=== PATIENT | female | born 1930 | race Caucasian/White ===

== ENCOUNTER 2017-02-21 05:08 | Inpatient (IN) | payer OTHER ==
[~2017-02-21] VITALS: Ht 154.9 cm; Wt 45.7 kg
--- NOTE | ~2017-02-21 | 2DMMODE ---
[facility] [address] [facility] [place] [address] 2 D/M-MODE ECHOCARDIOGRAM Name: NEPTALI EASTMAN Room #: 216-P ADM IN M.R.#: [id number] Admission: 02/21/17 Attend Phys: Adelaida Colby Discharge: Date of : [birth year] Date of Service: 02/21/17 1603 Report #: [id number] THIS REPORT FOR: //name// APPROVED REPORT Study performed: 02/21/2017 13:45:20 EXAM: Comprehensive 2D, Doppler, and color-flow Echocardiogram Patient Location: Bedside Room #: 216 Blood Pressure: 143/73 mmHg HR: 68 bpm Other Information Study Quality: Adequate Indications CAD Chest Pain 2D Dimensions RVDd: 33.97 mm LVEF(%): 62.56 (>50%) IVSd: 13.10 (7-11mm) LVOT Diam: 18.96 (18-24mm) LVDd: 37.82 mm PWd: 8.77 (7-11mm) Ascending Ao: 28.64 (22-36mm) LVDs: 25.27 (25-40mm) Aortic Root: 31.87 mm IVC: 10.00 mm Brown's LVEF: 62.56 % Volumes Left Atrial Volume (Systole) Single Plane 4CH: 22.28 mL Single Plane 2CH: 68.72 mL LA ESV Index: 29.00 mL/m2 Aortic Valve AoV Peak Mayank.: 1.46 m/s AO Peak Gr.: 8.58 mmHg LVOT Max P.68 mmHg LVOT Max V: 0.96 m/s AI Vmax: 4.82 m/s AI Gilchrist: 2.61 m/s2 AI PHT: 534.37 ms [facility] [address] [place] [address] 2 D/M-MODE ECHOCARDIOGRAM Name: NEPTAIL EASTMAN [facility] Room #: 216-[facility] IN ..#: [id number] Admission: 02/21/17 Attend Phys: Adelaida Colby Discharge: Date of : [birth year] Date of Service: 02/21/17 1603 Report #: [id number] Mitral Valve E/A Ratio: 0.5 MV Decel. Time: 376.97 ms MV E Max Mayank.: 0.54 m/s MV A Mayank.: 1.04 m/s MV PHT: 109.32 ms Pulmonary Vein P Vein S: 61.9 m/s P Vein D: 36.4 m/s P Vein A Dur.: 28.0 m/s Tricuspid Valve TR Peak Mayank.: 2.98 m/s RAP Estimate: 5.00 mmHg TR Peak Gr.: 35.48 mmHg Left Ventricle The left ventricle is normal size. There is normal left ventricular wall thickness. There is no ventricular septal defect visualized. Left ventricular systolic function is borderline. No left ventricle thrombus noted on this study. LVEF is 50-60%. Grade I - abnormal relaxation pattern. Right Ventricle The right ventricle is normal size. There is normal right ventricular wall thickness. The right ventricular systolic function is normal. Atria The left atrium size is normal. Small PFO is noted. The right atrium size is normal. Aortic Valve The aortic valve is normal in structure. Mild to moderate aortic regurgitation. There is no aortic valvular vegetation. There is no aortic valvular stenosis. Mitral Valve The mitral valve is normal in structure. Trace to mild mitral regurgitation. There is no evidence of mitral valve vegetations. No evidence of mitral valve stenosis. There is no evidence of mitral valve prolapse. Tricuspid Valve The tricuspid valve is normal in structure. There is no tricuspid valve stenosis. Mild to moderate tricuspid regurgitation. There is no tricuspid valve vegetations. [address] [address] 2 D/M-MODE ECHOCARDIOGRAM Name: NEPTALI EASTMAN Room #: 216-P [facility] IN [facility]#: [id number] Admission: 02/21/17 Attend Phys: Adelaida Colby Discharge: Date of : [birth year] Date of Service: 02/21/17 1603 Report #: [id number] Pulmonic Valve Pulmonic valve is not well visualized due to low window of visualization. There is no pulmonic valvular stenosis. There is no pulmonic valve vegetations. Great Vessels The aortic root is normal in size. The ascending aorta is normal in size. IVC is normal in size and collapses >50% with inspiration. The pulmonary artery is normal. Pericardium There is no pericardial effusion. There is no pleural effusion. <Conclusion> The left ventricle is normal size. There is no ventricular septal defect visualized. LVEF is 50-60%. The aortic valve is normal in structure. Mild to moderate aortic regurgitation. The mitral valve is normal in structure. Trace to mild mitral regurgitation. The tricuspid valve is normal in structure. Mild to moderate tricuspid regurgitation. <ELECTRONICALLY SIGNED> By: Carlos Langford MD 02/21/17 1603 1603 1603 Carlos Langford MD /INF
--- NOTE | ~2017-02-21 | D ---
[facility] [place] [address] DISCHARGE SUMMARY Name: NEPTALI EASTMAN Room #: 216-P [facility] IN M.R.#: [id number] Admission: 02/22/17 Attend Phys: Adelaida Colby MD Discharge: 02/23/17 Date of : [birth year] Report #: [id number] THIS REPORT FOR: //name// CC: Adelaida [facility] DATE OF SERVICE: 02/23/2017 HISTORY OF PRESENT ILLNESS: The patient is an 86-year-old female with history of coronary artery disease, status post cardiac stents times 6 in the past, who was admitted to the hospital with chest pain. Please refer to admission H and P for details. In brief, the patient's initial evaluation was unremarkable, including negative troponins. Second set of troponin was borderline high. Circuit Board Assembler was consulted. HOSPITAL COURSE: The patient had cardiac echo, that showed normal ejection fraction, and was unremarkable. The patient has plbl-ru-zagszwal tricuspid regurgitation. Cardiac catheterization was performed on 02/22/2017. Cardiac echo showed patent LAD with aeqw-qs-npptghbv stenosis, patent sequential SVG. The patient has occluded RCA with collateral filling of the distal segments about 50%. Medical therapy was recommended. The patient's condition remained stable. Chest pain has completely resolved. Currently, the patient's condition is acceptable, including physical examination and laboratory values as documented in the patient's chart. DISCHARGE DIAGNOSES: 1. Chest pain, resolved. Details as above. As noted, the patient had cardiac catheterization on 02/22/2017, that showed no new coronary artery disease. 2. Coronary artery disease, status post coronary artery bypass grafting surgery, and stent placements. 3. Hypertension. 4. History of diverticulitis. 5. History of atrial fibrillation, status post ablation in 2010. 6. History of nephrolithiasis. 7. Macular degeneration. DISCHARGE MEDICATIONS: Please refer to the medication reconciliation list in EMR. FOLLOWUP PLAN: [facility] [address] [place] [address] DISCHARGE SUMMARY Name: NEPTALI EASTMAN [facility] Room #: 216-P [facility] IN ..#: [id number] Admission: 02/22/17 Attend Phys: Adelaida Colby MD Discharge: 02/23/17 Date of : [birth year] Report #: [id number] 1. Follow up with the primary care physician in 1-2 weeks. 2. Follow up with tack maker in 3 weeks. <ELECTRONICALLY SIGNED> By: Adelaida Colby MD 02/26/17 1231 1115 [id number] Adelaida Colby MD /nt
--- NOTE | ~2017-02-21 | EKG ---
[address] [place] [address] ELECTROCARDIOGRAM REPORT Name: NEPTALI EASTMAN Room #: 216-P [facility]#: [id number] Admission: 02/21/17 Attend Phys: Alvino Calles MD Discharge: Date of : [birth year] Report #: [id number] THIS REPORT FOR: //name// [facility] ED Test Date: 2017-02-21 Test Time: 05:15:30 Pat Name: NEPTALI EASTMAN Department: Room: 216 Gender: F [employer]ation [employer] Controls Instructor: LUIZA : 1930 Requested By: Jose Alberto Haq Order Number: [id number] MD: Mayank Lewis Measurements Intervals [place] Rate: 72 P: 23 W[place]: 160 QRS: -38 QRSD: 114 T: 68 QT: 417 QTc: 457 Interpretive Statements Atrial fibrillation Occasional premature ventricular complexes. Compared to ECG 01/05/2016 02:59:34 Atrial fibrillation is replaced sinus rhythm Electronically Signed On 02-21-2017 8:04:28 CDT by Mayank Lewis [email or web address] <ELECTRONICALLY SIGNED> By: Mayank Lewis MD, [facility] 02/21/17 0804 4 Mayank Lewis MD, [facility] /EPI
--- NOTE | ~2017-02-21 | CATHLAB ---
[facility] [place] [address] INVASIVE PROCEDURE REPORT Name: RAIZANEPTALI Room #: 216-P [facility] IN ..#: [id number] Admission: 02/22/17 Attend Phys: Adelaida Colby Discharge: Date of : [birth year] Date of Service: 02/22/17 0948 Report #: [id number] THIS REPORT FOR: //name// CC: Adelaida Jenkins DATE OF SERVICE: 02/22/2017 CARDIAC CATHETERIZATION INDICATIONS: Unstable angina. Full risks, benefits and alternatives of cardiac catheterization were explained to the patient. All questions were answered. Informed consent was obtained. The right groin area was prepped and draped in a sterile manner. Lidocaine was given subcutaneously. A 4-Kyrgyz sheath was inserted into the right femoral artery via modified Seldinger technique. CORONARY ANATOMY: The left main artery is a moderate to large size caliber vessel, with no flow-limiting lesions. The LAD is a moderate sized caliber vessel, travelling down the anterior wall and wrapping around the apex. There are previously placed stents in the proximal/mid segments of the LAD with pwys-xr-nxcushsp diffuse restenosis, 30% to 50%. Medical therapy is recommended. ____, the remaining segments of the LAD have no flow-limiting lesions. The left circumflex artery is ____ occluded at the proximal segment. The RCA is a dominant vessel with a total occlusion in the proximal segment. GRAFTS: There is a saphenous vein graft to the distal RCA with a 100% occlusion in the proximal segment. The [place] distal RCA is filled via collateral circulation from the left coronary artery. There is a patent sequential saphenous vein graft to the first diagonal artery, first obtuse marginal artery and second obtuse marginal artery. Within the anastomotic sites, there were no flow limiting lesions. Within the mid segment of the vein graft between the anastomosis of the first diagonal artery and first obtuse marginal artery, there is a zrza-or-wcnllswf lesion, 30% to 40%. Medical therapy is recommended. After the anastomosis, the first and second obtuse marginal arteries have antegrade flow with no flow limiting lesions. [facility] [address] [place] [address] INVASIVE PROCEDURE REPORT Name: NEPTALI EASTMAN ANISH Room #: 216-P [facility] IN .R.#: [id number] Admission: 02/22/17 Attend Phys: Adelaida Colby Discharge: Date of : [birth year] Date of Service: 02/22/17 0948 Report #: [id number] A left ventriculogram was performed revealing mild segmental LV dysfunction, ejection fraction of 50%. There is hypokinesis of the anterior lateral segment. The LVEDP is approximately 12 mmHg. There is no gradient across the outflow tract. IMPRESSION: 1. Patent LAD stents with scph-pe-huzgfalj diffuse restenosis. Recommend medical therapy. 2. Patent sequential vein graft to first diagonal artery, first obtuse marginal artery and second obtuse marginal artery. There is vrqv-ra-adiqsjgw stenosis within the vein graft. Medical therapy is recommended. 3. Occlusion of the [place] RCA and vein graft to the RCA. The distal RCA is filled via collateral circulation. Continue with medical therapy. 4. Mild segmental LV dysfunction. <ELECTRONICALLY SIGNED> By: Jacques Forbes MD 02/23/17 0840 0948 1329 Jacques Forbes MD /nt
[~2017-02-21 05:08] MED LIST: APAP500 PO; ASPIRIN325 PO; BACTRIM DS TAB1 EACH PO; BETAPACE80 MG PO; CEPHALEXIN PO; DARVOCET-N 1001 EAC1 PO; DARVOCET-N 1001 EACH PO; ECOTRIN325 MG PO; HEALTHY EYES C1 EACH PO; HYDROCHLOROTH12.5 MG PO; IMDUR 30 MG TAB30 M1 PO; IMDUR 60 MG TAB60 M1 PO; KEFLEX500 MG PO; KLOR-CON 1010 MEQ PO; LATANOPROST 0.2.5 ML OP; MACROBID 100 M100 M1 PO; MIRALAX255 GM PO; MUCINEX TA600 MG/TA2 PO; NITROGLYCERIN0.4 MG SUBLING; NITROSTAT0.4 MG PO; OMEPRAZOLE PO; PHENERGAN 25 MG25 M1 PO; POTASSIUM20 PO; PRILOSEC20 MG PO; QUINU10 PD PO; REFRESH TEARS15 ML OP; SIMVASTATIN40 MG PO; TOPROL XL100 MG PO; TOPROL XL25 MG PO; ZOFRAN ODT4 MG PO
[2017-02-21 05:09] VITALS: BP 143/74
[2017-02-21 05:30] LABS: ABSOLUTE NEUTROPHILS 4.2 thou/uL (1.4-8.2); BASOPHILS 0.8 % (0.0-2.0); EOSINOPHILS 1.7 % (0.0-3.0); HEMATOCRIT 35.4 % (37.0-47.0); HEMOGLOBIN 12.3 gm/dL (12.0-15.0); MCH 35.4 pg (26.0-34.0); MCHC 34.7 g/dL (28.0-37.0); MCV 102.1 fL (80.0-100.0); MONOCYTES 8.3 % (1.0-8.0); PLATELET COUNT 239 thou/uL (150-400); POLYS 57.2 % (36.0-66.0); RBC 3.47 mil/uL (4.20-5.00); RDW 13.9 % (10.5-14.5); WBC 7.3 thou/uL (4.0-11.0)
[2017-02-21 05:37] LABS: MANUAL DIFF NO
[2017-02-21 05:38] LABS: ANION GAP 10 mmol/L (7-16); BUN 14 mg/dL (7-18); CALCIUM 7.6 mg/dL (8.5-10.1); CHLORIDE 111 mmol/L (98-107); CO2 23 mmol/L (21-32); CREATININE 0.7 mg/dL (0.6-1.0); GLUCOSE 95 mg/dL (74-106); POTASSIUM 3.1 mmol/L (3.5-5.1); SODIUM 144 mmol/L (136-145)
[2017-02-21 05:45] LABS: ALBUMIN 3.4 g/dL (3.4-5.0); ALKALINE PHOSPHATASE 58 U/L (46-116); MAGNESIUM 1.9 mg/dL (1.8-2.4); SGOT 19 U/L (15-37); SGPT 14 U/L (30-65); TOTAL BILIRUBIN 0.7 mg/dL (<0.1-1.0); TOTAL PROTEIN 5.7 g/dL (6.4-8.2); TROPONIN-I < 0.04 ng/mL (<0.04-0.07)
[2017-02-21 06:55] VITALS: BP 135/61
[2017-02-21 07:20] VITALS: BP 177/94
[2017-02-21 11:20] VITALS: BP 143/73
[2017-02-21 16:00] VITALS: BP 115/72
[2017-02-21 19:26] VITALS: BP 116/69
[2017-02-22] VITALS (12 sets, daily range): BP systolic 106–150; BP diastolic 56–80
[2017-02-22 04:16] LABS: CALCIUM 9.4 mg/dL (8.5-10.1); CREATININE 0.9 mg/dL (0.6-1.0)
[2017-02-22 04:19] LABS: ABSOLUTE NEUTROPHILS 4.9 thou/uL (1.4-8.2); BASOPHILS 0.5 % (0.0-2.0); EOSINOPHILS 1.4 % (0.0-3.0); HEMATOCRIT 36.2 % (37.0-47.0); HEMOGLOBIN 12.5 gm/dL (12.0-15.0); LYMPHOCYTES 21.9 % (24.0-44.0); MCH 35.2 pg (26.0-34.0); MCHC 34.5 g/dL (28.0-37.0); MCV 102.1 fL (80.0-100.0); MONOCYTES 10.3 % (1.0-8.0); PLATELET COUNT 212 thou/uL (150-400); POLYS 65.9 % (36.0-66.0); RBC 3.55 mil/uL (4.20-5.00); RDW 14.1 % (10.5-14.5); WBC 7.4 thou/uL (4.0-11.0)
[2017-02-22 04:21] LABS: MANUAL DIFF NO
[2017-02-23 00:30] VITALS: BP 121/68
[2017-02-23 03:55] LABS: HEMOGLOBIN 12.1 gm/dL (12.0-15.0); MCH 35.1 pg (26.0-34.0); MCHC 34.5 g/dL (28.0-37.0); MCV 101.7 fL (80.0-100.0); PLATELET COUNT 202 thou/uL (150-400); RBC 3.44 mil/uL (4.20-5.00); RDW 13.8 % (10.5-14.5)
[2017-02-23 03:57] LABS: MANUAL DIFF YES
[2017-02-23 03:58] LABS: POTASSIUM 4.2 mmol/L (3.5-5.1)
[2017-02-23 04:44] VITALS: BP 113/61
[2017-02-23 07:15] VITALS: BP 110/59
[2017-02-23 07:31] LABS: ABSOLUTE NEUTROPHILS 3.4 thou/uL (1.4-8.2); ANISOCYTOSIS SLIGHT; TOTAL CELL COUNT 100
[2017-02-23 07:55] VITALS: BP 110/59
[2017-02-23 11:05] VITALS: BP 110/59
[2017-02-23 12:00] VITALS: BP 146/69
== END 2017-02-23 14:50 | disposition home or self-care (01) | DRG 287 ==
LOC: ER 05:08 → 2N 05:49 → EROBS 05:49 → 2N 07:23
PROVIDERS: Emergency Medicine; Internal Medicine Cardiovascular Disease; Internal Medicine Endocrinology, Diabetes & Metabolism
PROC: B2151ZZ Fluoroscopy of Left Heart using Low Osmolar Contrast (ICD-10-PCS; principal; 2017-02-22)
PROC: B2111ZZ Fluoroscopy of Multiple Coronary Arteries using Low Osmolar Contrast (ICD-10-PCS; principal; 2017-02-22)
PROC: B2121ZZ Fluoroscopy of Single Coronary Artery Bypass Graft using Low Osmolar Contrast (ICD-10-PCS; principal; 2017-02-22)
PROC: 4A023N7 Measurement of Cardiac Sampling and Pressure, Left Heart, Percutaneous Approach (ICD-10-PCS; principal; 2017-02-22)
DX: T82.855A Stenosis of coronary artery stent, initial encounter (principal); I25.10 Atherosclerotic heart disease of native coronary artery without angina pectoris; H40.9 Unspecified glaucoma; E87.6 Hypokalemia; H35.30 Unspecified macular degeneration; I48.91 Unspecified atrial fibrillation; I10 Essential (primary) hypertension; Z90.710 Acquired absence of both cervix and uterus; E78.5 Hyperlipidemia, unspecified; Z87.442 Personal history of urinary calculi; Z90.49 Acquired absence of other specified parts of digestive tract; Z88.6 Allergy status to analgesic agent; Z88.0 Allergy status to penicillin; Z88.1 Allergy status to other antibiotic agents; Z87.891 Personal history of nicotine dependence; Z79.82 Long term (current) use of aspirin; Z79.899 Other long term (current) drug therapy; Z82.49 Family history of ischemic heart disease and other diseases of the circulatory system
CPT/HCPCS: 10081

== ENCOUNTER 2017-03-11 05:30 | Emergency (ER) | payer OTHER ==
[~2017-03-11] VITALS: Ht 154.9 cm; Wt 44.5 kg
--- NOTE | ~2017-03-11 | EKG ---
[address] [place] [address] ELECTROCARDIOGRAM REPORT Name: RAIZANEPTALI ANISH [id number] Admission: 03/11/17 Attend Phys: Discharge: 03/11/17 Date of : [birth year] Report #: [id number] THIS REPORT FOR: //name// [facility] ED Test Date: 2017-03-11 Test Time: 05:37:04 Pat Name: NEPTALI EASTMAN Department: Room: Gender: F Palliative Care Nurse Practitioner: ADRIANA : 1930 Requested By: Cara Pratt Order Number: [id number] MD: Mayank Lewis Measurements Intervals [place] Rate: 63 P: 48 [place]: 164 QRS: -31 QRSD: 109 T: 87 QT: 424 QTc: 435 Interpretive Statements Sinus rhythm Left axis deviation Compared to ECG 02/21/2017 05:15:30 Atrial fibrillation no longer present Ventricular premature complex(es) no longer present Electronically Signed On 03-11-2017 11:54:08 CDT by Mayank Lewis [email or web address] <ELECTRONICALLY SIGNED> By: Mayank Lewis MD, [facility] 03/11/17 1154 Mayank Lewis MD, [facility] /EPI
[2017-03-11 06:12] LABS: ABSOLUTE NEUTROPHILS 6.3 thou/uL (1.4-8.2); BASOPHILS 0.3 % (0.0-2.0); HEMATOCRIT 33.2 % (37.0-47.0); HEMOGLOBIN 11.5 gm/dL (12.0-15.0); LYMPHOCYTES 12.9 % (24.0-44.0); MCH 35.8 pg (26.0-34.0); MCHC 34.7 g/dL (28.0-37.0); MCV 103.2 fL (80.0-100.0); MONOCYTES 6.2 % (1.0-8.0); PLATELET COUNT 215 thou/uL (150-400); POLYS 79.6 % (36.0-66.0); RBC 3.22 mil/uL (4.20-5.00); RDW 14.2 % (10.5-14.5); WBC 7.9 thou/uL (4.0-11.0)
[2017-03-11 06:14] LABS: MANUAL DIFF NO
[2017-03-11 06:21] LABS: ANION GAP 6 mmol/L (7-16); BUN 17 mg/dL (7-18); CALCIUM 9.3 mg/dL (8.5-10.1); CHLORIDE 106 mmol/L (98-107); CO2 28 mmol/L (21-32); CREATININE 0.9 mg/dL (0.6-1.0); GLUCOSE 125 mg/dL (74-106); POTASSIUM 3.9 mmol/L (3.5-5.1); SODIUM 140 mmol/L (136-145)
[2017-03-11 06:29] LABS: TROPONIN-I < 0.04 ng/mL (<0.04-0.07)
[2017-03-11] MEDS ORDERED: ZOFRAN ODT4 MG PO (09:14)
[2017-03-11] MEDS ORDERED: NORCO 5-325 TA1 EACH PO (09:14)
[2017-03-11 09:38] VITALS: BP 143/58
== END 2017-03-11 09:40 | disposition home or self-care (01) ==
LOC: ER 05:30
PROVIDERS: Emergency Medicine
DX: R07.89 Other chest pain (principal); I25.10 Atherosclerotic heart disease of native coronary artery without angina pectoris; H35.30 Unspecified macular degeneration; Z90.710 Acquired absence of both cervix and uterus; Z90.49 Acquired absence of other specified parts of digestive tract; Z98.84 Bariatric surgery status; Z90.89 Acquired absence of other organs; Z88.0 Allergy status to penicillin; Z88.1 Allergy status to other antibiotic agents; Z88.5 Allergy status to narcotic agent; Z87.891 Personal history of nicotine dependence

== ENCOUNTER 2017-09-29 12:25 | Inpatient (IN) | payer OTHER ==
[~2017-09-29] VITALS: Ht 154.9 cm; Wt 44.4 kg
--- NOTE | ~2017-09-29 | H ---
[facility] [place] [address] HISTORY AND PHYSICAL Name: NEPTALI EASTMAN Room #: 448-P ADM IN M.R.#: [id number] Admission: 09/29/17 Attend Phys: Adelaida Colby MD Discharge: Date of : [birth year] Report #: [id number] THIS REPORT FOR: //name// [facility]: [facility] DATE OF SERVICE: 09/29/2017 The patient is admitted to the hospital on September 29. CHIEF COMPLAINT: Abdominal pain. HISTORY OF PRESENT ILLNESS: The patient is an 87-year-old female with multiple medical problems, was started substernal/epigastric pain yesterday. The patient describes pain as sharp, stabbing, that comes and goes. Highest intensity pain was 10/10. In the Emergency Room, the patient had CT scan of the abdomen that was consistent with small-bowel obstruction. After symptomatic treatment, the patient feels better. The patient also had EKG that showed no acute findings. Troponin was borderline elevated. The patient has no shortness of breath, no chest pain, no heart palpitations, dizziness, blurry vision, or other symptoms. PAST MEDICAL HISTORY: 1. Coronary artery disease, status post CABG in 1994. Status post angioplasty and stent placements. 2. Nephrolithiasis. 3. Macular degeneration. 4. Atrial fibrillation, status post ablation in 2010. 5. Hypertension. 6. Dyslipidemia. 7. Hemorrhoids. 8. Status post appendectomy. 9. Status post cholecystectomy. HOME MEDICATIONS: Reviewed and documented in the patient's chart. FAMILY HISTORY: Reviewed and not pertinent to the patient's current clinical condition. SOCIAL HISTORY: The patient lives by herself, close to her family. She does not smoke cigarettes and does not drink alcohol. REVIEW OF SYSTEMS: As above in HPI section, all others negative. [facility] [address] [place] [address] HISTORY AND PHYSICAL Name: NEPTALI EASTMAN Room #: 448-P ADM IN [facility].#: [id number] Admission: 09/29/17 Attend Phys: Adelaida Colby MD Discharge: Date of : [birth year] Report #: [id number] PHYSICAL EXAMINATION: GENERAL: The patient is an elderly female, who is in no apparent distress. VITAL SIGNS: Blood pressure is 138/69, heart rate is 68 and regular, respiration is 20, temperature is 97.7. HEENT: Pupils are equal. Eye movements are normal. Sclerae are anicteric. Oral mucosa is somewhat dry. NECK: Supple. The patient has no thyromegaly. RESPIRATORY: Chest moves symmetrically with breathing. LUNGS: Clear to auscultation bilaterally. CARDIOVASCULAR: The patient has regular rhythm and rate. She has no murmurs, gallops or rubs. GASTROINTESTINAL: Abdomen is slightly distended and soft. Abdomen is tender on deep palpation. The patient has no rebound tenderness. Hepatomegaly or splenomegaly cannot be palpated. MUSCULOSKELETAL: There is no edema, cyanosis or clubbing. NEUROLOGIC: Grossly intact. The patient is alert and oriented x 3. SKIN: The patient has no skin lesions. Skin is dry and warm. LABORATORY DATA: Basic metabolic profile is essentially normal. Lactic acid is also normal. Liver function tests are normal. Troponin is borderline high at 0.08. On CBC, white count is 13.7. Hemoglobin and hematocrit are in the normal range. White count differential is also normal. ASSESSMENT AND PLAN: 1. Small-bowel obstruction. Symptomatic treatment will be continued. General surgeon is consulted. The patient may need NG tube placement with suctioning. The patient will be n.p.o. until oral intake is established. 2. Longstanding history of coronary artery disease, status post CABG in 1994, followed by PTCA and stent placements. Troponin is borderline elevated. We will monitor troponin levels. EKG shows no acute findings, and the patient has no chest pain. Synthetic Department Supervisor is consulted for further evaluation. 3. Hypertension. Acceptable control. We will use hydralazine until the patient starts taking medications by mouth. 4. Deep venous thrombosis prophylaxis. We will use SCDs. By: 1547 1644 Adelaida Colby MD /nt
--- NOTE | ~2017-09-29 | HC ---
[facility] [place] [address] CONSULTATION Name: NEPTALI EASTMAN Room #: 448-P ADM IN M.R.#: [id number] Admission: 09/29/17 Attend Phys: Adelaida Colby MD Discharge: Date of : [birth year] Report #: [id number] THIS REPORT FOR: //name// CC: Jacques Jenkins MD DATE OF SERVICE: 09/29/2017 REASON FOR CONSULTATION: Bowel obstruction. HISTORY OF PRESENT ILLNESS: This is an 87-year-old female patient who developed bloating yesterday and began having pain this morning around 9:00. She has had difficulty with nausea and had not been vomiting. She was seen in the [facility] where she underwent a CT of the abdomen and pelvis showing changes consistent with a small-bowel obstruction with a transition point in the right pelvis. A small amount of reactive free fluid was also seen in the pelvis. The patient had leukocytosis as well. Attempts were made to place a nasogastric tube unsuccessfully. The patient had emesis with this. I have been asked to see the patient for further evaluation and treatment. She denies fever or chills. She has not had a previous bowel obstruction. PAST MEDICAL AND SURGICAL HISTORY: Significant for coronary artery disease, diverticulitis, hemorrhoids, cardiac disease status post CABG and cardiac stents, glaucoma, macular degeneration, open appendectomy, open cholecystectomy, total abdominal hysterectomy with bilateral salpingo-oophorectomy. MEDICATIONS: Include Zocor, MiraLax, Accupril, latanoprost eye drops, potassium chloride, hydrochlorothiazide, Imdur, Prilosec, Ecotrin, Tylenol, Toprol-XL, multivitamins, Mucinex, and Nitrostat p.r.n. chest pain. ALLERGIES: PENICILLIN causes a rash. MORPHINE causes nausea and vomiting. FAMILY HISTORY: Reviewed and noncontributory to this hospitalization. The patient has a son with cardiomyopathy. SOCIAL HISTORY: The patient denies use of tobacco, alcohol or illicit drugs. She is accompanied by her son and zagdzfan-lh-xhr. REVIEW OF SYSTEMS: As per history of present illness. In addition: GENERAL: The patient denies fever or chills. Denies unintentional weight loss. HEENT: Denies changes in taste, vision, hearing, or smell. RESPIRATORY: Denies shortness of breath, COPD or asthma. CARDIOVASCULAR: Denies chest pain or palpitations. GASTROINTESTINAL: As per history of present illness. She denies bright red [facility] [address] [place] [address] CONSULTATION Name: NEPTALI EASTMAN ANISH Room #: 448-P [facility] IN M..#: [id number] Admission: 09/29/17 Attend Phys: Adelaida Colby MD Discharge: Date of : [birth year] Report #: [id number] blood per rectum. Her most recent colonoscopy was in 2008. GENITOURINARY: Denies dysuria, urgency, increased urinary frequency or hematuria. MUSCULOSKELETAL: Denies myalgia, arthralgia or arthritis. NEUROLOGIC: Denies headaches, numbness or tingling. PSYCHIATRIC: Denies depression, anxiety or suicidal ideations. SKIN AND INTEGUMENTARY: Denies new skin lesions, rashes, or moles. ENDOCRINE: Denies polydipsia, polyuria, heat or cold intolerance. HEMATOLOGIC: Denies easy bleeding, bruising or anemia. All other review of systems is negative. PHYSICAL EXAMINATION: VITAL SIGNS: Temperature 97.7, blood pressure 151/46, pulse 59, respirations 18, height 5 feet 1 inches, and weight 100 pounds. GENERAL: This is an 87-year-old female patient in no acute distress. HEENT: Atraumatic, normocephalic with moist mucosal membranes. Oropharynx clear. She has no scleral icterus. NECK: Supple, no appreciable lymphadenopathy. Trachea is midline. CHEST: Clear bilaterally. No crackles or wheezes. CARDIOVASCULAR: Regular rate and rhythm. ABDOMEN: Soft and distended in the lower abdomen. Incisional scars are seen on the right for her appendectomy in the lower midline and left paramedian as well as a right subcostal scar. There are no appreciable hernias, no palpable masses, no rebound or guarding with mild tenderness to palpation in the lower abdomen and upper epigastrium. GENITOURINARY: Normal external female genitalia. EXTREMITIES: No clubbing, cyanosis or edema. NEUROLOGIC: Cranial nerves 2-12 grossly intact. PSYCHIATRIC: Normal mood and affect. SKIN AND INTEGUMENTARY: No acute inflammatory changes, rashes or lesions are present. LABORATORY DATA: CBC shows a white blood cell count of 13.7, hemoglobin 12.9, hematocrit 37.6 and platelets 256 with 77.8 segmented neutrophils. Electrolytes show sodium 136, potassium 4.1, chloride 101, CO2 of 29, BUN 17, creatinine 0.9 and glucose 115 with normal liver function tests and a normal lipase. Her lactic acid was normal at 1.2. Urinalysis was entirely negative. RADIOLOGIC STUDIES: CT of the abdomen and pelvis showed a small amount of reactive free fluid in the dependent pelvis with fluid filled loops of small bowel within the abdomen and pelvis. The distal small bowel was decompressed. A focal transition point was seen in the right pelvis with fecalization of the small bowel just proximal to the obstruction site. There is no free air or other acute finding seen. IMPRESSION AND PLAN: This is an 87-year-old female patient with a mechanical [facility] [address] [place] [address] CONSULTATION Name: NEPTALI EASTMAN ANISH Room #: 448-P ADM IN M.R.#: [id number] Admission: 09/29/17 Attend Phys: Adelaida Colby MD Discharge: Date of : [birth year] Report #: [id number] small-bowel obstruction. Her abdomen is distended and she has CT findings for a transition zone in the right pelvis with fecalization of the small bowel. We discussed the pathophysiology and natural history of bowel obstructions as well as treatment alternatives and surgical options. The patient would benefit from decompression of her proximal small bowel, bowel rest, and IV fluid resuscitation. She has high hopes that with adequate decompression, her obstruction will resolve. The nurse attempted to place a nasogastric tube 3 times unsuccessfully and the patient wishes not to undergo this again today. My recommendation is that a nasogastric tube be placed with lidocaine jelly and I will plan to have this placed tomorrow. The patient is aware that she may self decompressed with vomiting. After placement of the tube tomorrow, a KUB will be obtained. I will follow along with serial abdominal exams as well as labs and x-rays as necessary. The patient expressed understanding of the plan. I sincerely appreciate the opportunity to participate in the care of this patient and will leave further recommendations and orders in the electronic medical record as appropriate. <ELECTRONICALLY SIGNED> By: Horacio Jackson MD, FACS 09/30/17 0737 1653 [id number] Horacio Jackson MD, FACS /nt
--- NOTE | ~2017-09-29 | EKG ---
[address] [address] ELECTROCARDIOGRAM REPORT Name: NEPTALI EASTMAN Room #: 448-P ADM IN M.R.#: [id number] Admission: 09/29/17 Attend Phys: Adelaida Colby MD Discharge: Date of : [birth year] Report #: [id number] THIS REPORT FOR: //name// [facility] ED Test Date: 2017-09-29 Test Time: 12:30:04 Pat Name: NEPTALI EASTMAN Department: Room: [facility] Gender: F Refrigerating Engineer Head: : 1930 Requested By: Cara Pratt Order Number: [id number] MD: Evan Albright Measurements Intervals [place] Rate: 72 P: 20 [place]: 166 QRS: -40 QRSD: 99 T: 96 QT: 413 QTc: 453 Interpretive Statements Sinus rhythm Left axis deviation Borderline repolarization abnormality Compared to ECG 03/11/2017 05:37:04 No significant changes Electronically Signed On 09-29-2017 16:06:11 RAP ARTIST by Evan Albright [email or web address] <ELECTRONICALLY SIGNED> By: Evan Albright MD 09/29/17 1606 1230 1230 Evan Albright MD /GERALDO
[~2017-09-29 12:25] MED LIST changes: +NORCO 5-325 TA1 EACH PO
[2017-09-29 12:50] LABS: ABSOLUTE NEUTROPHILS 10.6 thou/uL (1.4-8.2); BASOPHILS 0.4 % (0.0-2.0); EOSINOPHILS 0.7 % (0.0-3.0); HEMATOCRIT 37.6 % (37.0-47.0); HEMOGLOBIN 12.9 gm/dL (12.0-15.0); LYMPHOCYTES 13.4 % (24.0-44.0); MANUAL DIFF NO; MCH 35.3 pg (26.0-34.0); MCHC 34.2 g/dL (28.0-37.0); MCV 103.4 fL (80.0-100.0); MONOCYTES 7.7 % (1.0-8.0); PLATELET COUNT 256 thou/uL (150-400); POLYS 77.8 % (36.0-66.0); RBC 3.64 mil/uL (4.20-5.00); RDW 14.4 % (10.5-14.5); WBC 13.7 thou/uL (4.0-11.0)
[2017-09-29 12:59] LABS: CALCIUM 9.9 mg/dL (8.5-10.1); CREATININE 0.9 mg/dL (0.6-1.0); POTASSIUM 4.1 mmol/L (3.5-5.1)
[2017-09-29 13:04] LABS: ALBUMIN 4.2 g/dL (3.4-5.0); DIRECT BILIRUBIN 0.2 mg/dL (<0.1-0.3); TOTAL BILIRUBIN 0.8 mg/dL (<0.1-1.0); TOTAL PROTEIN 7.1 g/dL (6.4-8.2); TROPONIN-I 0.08 ng/mL (<0.06)
[2017-09-29 13:45] LABS: URINE BILIRUBIN NEGATIVE (Negative); URINE BLOOD NEGATIVE (Negative); URINE COLOR YELLOW; URINE GLUCOSE-RANDOM* NEGATIVE (Negative); URINE KETONES NEGATIVE (Negative); URINE NITRITE NEGATIVE (Negative); URINE PROTEIN (DIPSTICK) NEGATIVE (Negative); URINE UROBILINOGEN 0.2 E.U./dl (0.2-1.0)
[2017-09-29 14:03] VITALS: BP 125/58
[2017-09-29 15:30] VITALS: BP 137/67
[2017-09-29 16:00] VITALS: BP 151/46
[2017-09-29 20:07] VITALS: BP 135/54
[2017-09-30 04:30] VITALS: BP 126/51
[2017-09-30 06:15] LABS: HEMATOCRIT 35.9 % (37.0-47.0); HEMOGLOBIN 12.2 gm/dL (12.0-15.0); MCH 35.1 pg (26.0-34.0); MCHC 33.9 g/dL (28.0-37.0); MCV 103.3 fL (80.0-100.0); PLATELET COUNT 227 thou/uL (150-400); RBC 3.47 mil/uL (4.20-5.00); WBC 21.6 thou/uL (4.0-11.0)
[2017-09-30 06:18] LABS: MANUAL DIFF YES
[2017-09-30 06:34] LABS: CALCIUM 9.5 mg/dL (8.5-10.1); CREATININE 0.9 mg/dL (0.6-1.0); POTASSIUM 3.9 mmol/L (3.5-5.1)
[2017-09-30 08:00] VITALS: BP 122/70
[2017-09-30 10:11] LABS: ABSOLUTE NEUTROPHILS 19.2 thou/uL (1.4-8.2); MACROCYTES 1+; TOTAL CELL COUNT 100
[2017-09-30 17:08] VITALS: BP 124/53
[2017-09-30 19:14] VITALS: BP 119/51
[2017-10-01 04:15] LABS: ABSOLUTE NEUTROPHILS 8.1 thou/uL (1.4-8.2); BASOPHILS 0.3 % (0.0-2.0); EOSINOPHILS 0.5 % (0.0-3.0); HEMATOCRIT 31.9 % (37.0-47.0); HEMOGLOBIN 11.1 gm/dL (12.0-15.0); MCH 35.8 pg (26.0-34.0); MCHC 34.9 g/dL (28.0-37.0); MCV 102.5 fL (80.0-100.0); MONOCYTES 11.9 % (1.0-8.0); PLATELET COUNT 199 thou/uL (150-400); POLYS 76.3 % (36.0-66.0); RBC 3.11 mil/uL (4.20-5.00); RDW 14.3 % (10.5-14.5); WBC 10.6 thou/uL (4.0-11.0)
[2017-10-01 04:20] LABS: MANUAL DIFF NO
[2017-10-01 04:22] LABS: CALCIUM 8.3 mg/dL (8.5-10.1); CREATININE 0.9 mg/dL (0.6-1.0); POTASSIUM 3.2 mmol/L (3.5-5.1)
[2017-10-01 04:31] VITALS: BP 113/47
[2017-10-01 08:00] VITALS: BP 129/50
[2017-10-01 16:19] VITALS: BP 131/70
[2017-10-01 19:30] VITALS: BP 136/68
[2017-10-02 03:58] LABS: CALCIUM 8.5 mg/dL (8.5-10.1); CREATININE 0.7 mg/dL (0.6-1.0); POTASSIUM 3.2 mmol/L (3.5-5.1)
[2017-10-02 04:02] VITALS: BP 109/56
[2017-10-02 04:22] LABS: ABSOLUTE NEUTROPHILS 7.4 thou/uL (1.4-8.2); BASOPHILS 0.5 % (0.0-2.0); EOSINOPHILS 1.4 % (0.0-3.0); HEMATOCRIT 30.4 % (37.0-47.0); HEMOGLOBIN 10.7 gm/dL (12.0-15.0); LYMPHOCYTES 11.7 % (24.0-44.0); MCH 36.6 pg (26.0-34.0); MCHC 35.4 g/dL (28.0-37.0); MCV 103.5 fL (80.0-100.0); PLATELET COUNT 202 thou/uL (150-400); POLYS 75.4 % (36.0-66.0); RBC 2.93 mil/uL (4.20-5.00); RDW 14.1 % (10.5-14.5); WBC 9.8 thou/uL (4.0-11.0)
[2017-10-02 04:27] LABS: MANUAL DIFF NO
[2017-10-02 04:32] LABS: TSH 1.112 uIU/mL (0.358-3.740)
[2017-10-02 07:24] VITALS: BP 137/67
[2017-10-02 16:17] VITALS: BP 149/80
[2017-10-02 19:38] VITALS: BP 150/73
[2017-10-03 03:52] VITALS: BP 134/70
[2017-10-03 06:25] LABS: ABSOLUTE NEUTROPHILS 4.7 thou/uL (1.4-8.2); BASOPHILS 0.5 % (0.0-2.0); EOSINOPHILS 1.8 % (0.0-3.0); HEMATOCRIT 29.5 % (37.0-47.0); HEMOGLOBIN 10.3 gm/dL (12.0-15.0); LYMPHOCYTES 16.1 % (24.0-44.0); MONOCYTES 11.1 % (1.0-8.0); PLATELET COUNT 191 thou/uL (150-400); POLYS 70.5 % (36.0-66.0); RBC 2.86 mil/uL (4.20-5.00); RDW 14.1 % (10.5-14.5); WBC 6.6 thou/uL (4.0-11.0)
[2017-10-03 06:26] LABS: MANUAL DIFF NO
[2017-10-03 06:38] LABS: CALCIUM 8.9 mg/dL (8.5-10.1); CREATININE 0.6 mg/dL (0.6-1.0); POTASSIUM 3.1 mmol/L (3.5-5.1)
[2017-10-03 08:31] VITALS: BP 136/60
[2017-10-03 11:15] VITALS: BP 150/61
[2017-10-03 16:38] VITALS: BP 149/70
[2017-10-03 20:42] VITALS: BP 161/78
[2017-10-04 04:18] VITALS: BP 125/62
[2017-10-04 06:45] LABS: BASOPHILS 0.2 % (0.0-2.0); EOSINOPHILS 2.6 % (0.0-3.0); HEMATOCRIT 30.5 % (37.0-47.0); HEMOGLOBIN 10.7 gm/dL (12.0-15.0); LYMPHOCYTES 11.1 % (24.0-44.0); MANUAL DIFF NO; MCH 35.9 pg (26.0-34.0); MCHC 35.1 g/dL (28.0-37.0); MONOCYTES 10.6 % (1.0-8.0); PLATELET COUNT 237 thou/uL (150-400); POLYS 75.5 % (36.0-66.0); RBC 2.98 mil/uL (4.20-5.00); RDW 13.8 % (10.5-14.5); WBC 6.7 thou/uL (4.0-11.0)
[2017-10-04 06:58] LABS: CALCIUM 8.9 mg/dL (8.5-10.1); CREATININE 0.7 mg/dL (0.6-1.0); POTASSIUM 3.5 mmol/L (3.5-5.1)
[2017-10-04 07:07] LABS: CHOLESTEROL 122 mg/dL (<200); HDL CHOLESTEROL 36 mg/dL (>40); LDL CHOLESTEROL 66 mg/dL (<100); TC:HDL 3.4 Ratio (Not establshd); TRIGLYCERIDE 101 mg/dL (<150); VLDL 20 mg/dL (<40)
[2017-10-04 08:46] VITALS: BP 165/77
[2017-10-04 16:45] VITALS: BP 145/67
[2017-10-04 22:32] VITALS: BP 137/65
[2017-10-05 05:14] VITALS: BP 141/67
[2017-10-05 07:37] VITALS: BP 151/74
[2017-10-05 09:50] VITALS: BP 151/74
[2017-10-05 09:57] VITALS: BP 151/74
[2017-10-05 11:04] VITALS: BP 151/74
[2017-10-05 11:06] VITALS: BP 151/74
== END 2017-10-05 12:55 | disposition home health service (06) | DRG 389 ==
LOC: ER 12:25 → 4S 14:03 → EROBS 14:03 → 4S 15:26
PROVIDERS: Emergency Medicine; Family Medicine; Internal Medicine Endocrinology, Diabetes & Metabolism; Internal Medicine Geriatric Medicine; Registered Nurse
PROC: 0D9670Z Drainage of Stomach with Drainage Device, Via Natural or Artificial Opening (ICD-10-PCS; principal; 2017-09-30)
DX: K56.609 Unspecified intestinal obstruction, unspecified as to partial versus complete obstruction (principal); E46 Unspecified protein-calorie malnutrition; Z68.1 Body mass index [BMI] 19.9 or less, adult; I25.10 Atherosclerotic heart disease of native coronary artery without angina pectoris; H35.30 Unspecified macular degeneration; I48.91 Unspecified atrial fibrillation; I10 Essential (primary) hypertension; E78.00 Pure hypercholesterolemia, unspecified; E87.6 Hypokalemia; D53.9 Nutritional anemia, unspecified; D72.829 Elevated white blood cell count, unspecified; D51.9 Vitamin B12 deficiency anemia, unspecified; H40.9 Unspecified glaucoma; Z79.899 Other long term (current) drug therapy; Z79.82 Long term (current) use of aspirin; Z95.1 Presence of aortocoronary bypass graft; Z87.442 Personal history of urinary calculi; Z95.5 Presence of coronary angioplasty implant and graft; Z90.89 Acquired absence of other organs; Z90.49 Acquired absence of other specified parts of digestive tract; Z88.8 Allergy status to other drugs, medicaments and biological substances; Z88.0 Allergy status to penicillin; Z90.710 Acquired absence of both cervix and uterus
CPT/HCPCS: 10195

== ENCOUNTER 2017-10-14 04:22 | Emergency (ER) | payer OTHER ==
[~2017-10-14] VITALS: Ht 154.9 cm; Wt 45.4 kg
[2017-10-14 05:00] LABS: URINE BILIRUBIN NEGATIVE (Negative); URINE BLOOD TRACE (Negative); URINE CLARITY CLEAR; URINE COLOR YELLOW; URINE GLUCOSE-RANDOM* NEGATIVE (Negative); URINE KETONES NEGATIVE (Negative); URINE LEUKOCYTES-REFLEX NEGATIVE (Negative); URINE NITRITE-REFLEX NEGATIVE (Negative); URINE PROTEIN (DIPSTICK) NEGATIVE (Negative); URINE SPECIFIC GRAVITY <= 1.005 (1.005-1.035); URINE UROBILINOGEN 0.2 E.U./dl (0.2-1.0)
[2017-10-14 05:08] LABS: ABSOLUTE NEUTROPHILS 7.4 thou/uL (1.4-8.2); EOSINOPHILS 0.8 % (0.0-3.0); HEMATOCRIT 31.9 % (37.0-47.0); HEMOGLOBIN 11.1 gm/dL (12.0-15.0); LYMPHOCYTES 16.7 % (24.0-44.0); MCH 35.8 pg (26.0-34.0); MCHC 34.8 g/dL (28.0-37.0); PLATELET COUNT 366 thou/uL (150-400); POLYS 74.5 % (36.0-66.0); RDW 14.2 % (10.5-14.5); WBC 9.9 thou/uL (4.0-11.0)
[2017-10-14 05:14] LABS: CALCIUM 9.7 mg/dL (8.5-10.1); CREATININE 0.9 mg/dL (0.6-1.0); POTASSIUM 3.9 mmol/L (3.5-5.1)
[2017-10-14 05:19] LABS: ALBUMIN 3.8 g/dL (3.4-5.0); TOTAL BILIRUBIN 0.8 mg/dL (<0.1-1.0); TOTAL PROTEIN 6.6 g/dL (6.4-8.2)
[2017-10-14] MEDS ORDERED: ULTRAM 50MG TAB50 MG PO (07:21)
[2017-10-14] MEDS ORDERED: PYRIDIUM200 MG PO (07:21)
[2017-10-14] MEDS ORDERED: ZPAK PO (07:22)
[2017-10-14 07:37] VITALS: BP 168/79
== END 2017-10-14 07:38 | disposition home or self-care (01) ==
LOC: ER 04:22
PROVIDERS: Emergency Medicine
DX: R10.11 Right upper quadrant pain (principal); J18.9 Pneumonia, unspecified organism; I25.10 Atherosclerotic heart disease of native coronary artery without angina pectoris; I48.91 Unspecified atrial fibrillation; Z90.710 Acquired absence of both cervix and uterus; Z87.442 Personal history of urinary calculi; Z90.49 Acquired absence of other specified parts of digestive tract; Z88.5 Allergy status to narcotic agent; Z88.0 Allergy status to penicillin

== ENCOUNTER → 2017-10-29 | Outpatient (CLI) | payer OTHER ==
[~2017-10-29] MED LIST changes: +ATIVAN0.5 MG PO; +PYRIDIUM200 MG PO; +ULTRAM 50MG TAB50 MG PO; +ZPAK PO
== END ==
LOC: RAD 11:48
DX: J18.1 Lobar pneumonia, unspecified organism (principal)

== ENCOUNTER → 2018-01-17 | Outpatient (CLI) | payer OTHER ==
--- NOTE | ~2018-01-17 | 2DMMODE ---
[facility] [address] [place] [address] 2 D/M-MODE ECHOCARDIOGRAM Name: RAIZANEPTALI ANISH Room #: REG [facility]#: [id number] Admission: 01/17/18 Attend Phys: Jacques Forbes MD Discharge: Date of : [birth year] Date of Service: 01/17/18 1019 Report #: [id number] THIS REPORT FOR: //name// APPROVED REPORT Study performed: 01/17/2018 08:50:35 EXAM: Comprehensive 2D, Doppler, and color-flow Echocardiogram Patient Location: Echo lab Status: routine BSA: 1.38 HR: 60 bpm BP: 156/79 mmHg Other Information Study Quality: Adequate Indications CAD Hypertension/HDD 2D Dimensions RVDd: 44.50 mm LVEF(%): 54.61 (>50%) IVSd: 11.09 (7-11mm) LVOT Diam: 17.92 (18-24mm) LVDd: 39.72 mm PWd: 10.90 (7-11mm) LVDs: 28.64 (25-40mm) Aortic Root: 31.25 mm IVC: 12.00 mm Brown's LVEF: 54.61 % Volumes Left Atrial Volume (Systole) Single Plane 4CH: 45.86 mL Single Plane 2CH: 61.12 mL LA ESV Index: 40.00 mL/m2 Aortic Valve AoV Peak Mayank.: 1.71 m/s AO Peak Gr.: 11.68 mmHg LVOT Max P.83 mmHg LVOT Max V: 1.10 m/s JERMAINE Vmax: 1.62 cm2 AI Vmax: 3.98 m/s AI [facility]: 1.71 m/s2 AI PHT: 673.09 ms [facility] [email or web address] [address] [place] [address] 2 D/M-MODE ECHOCARDIOGRAM Name: NEPTALI EASTMAN Room #: REG [facility]#: [id number] Admission: 01/17/18 Attend Phys: Jacques Forbes MD Discharge: Date of : [birth year] Date of Service: 01/17/18 1019 Report #: [id number] Mitral Valve E/A Ratio: 0.6 MV Decel. Time: 284.44 ms MV E Max Mayank.: 0.78 m/s MV A Mayank.: 1.26 m/s MV PHT: 82.49 ms IVRT: 131.49 ms Pulmonary Valve PV Peak Gr.: 1.36 mmHg Pulmonary Vein P Vein S: 0.88 m/s P Vein A: 0.18 m/s P Vein D: 0.42 m/s P Vein A Dur.: 90.0 msec P Vein S/D Ratio: 2.10 Tricuspid Valve TR Peak Mayank.: 2.67 m/s RAP Estimate: 5.00 mmHg TR Peak Gr.: 28.46 mmHg PA Pressure: 34.00 mmHg Left Ventricle The left ventricle is normal size. There is normal left ventricular wall thickness. Left ventricular systolic function is borderline. LVEF is 50%. Mild diastolic dysfunction is present (impaired relaxation pattern). Right Ventricle Right ventricle is mildly dilated. The right ventricular systolic function is normal. Atria Left atrium is dilated. Right atrium is dilated. Aortic Valve Aortic valve is thickened but has adequate excursion. Mild aortic regurgitation. There is no aortic valvular stenosis. Mitral Valve Mild mitral annular calcification. Mild to moderate mitral regurgitation. No evidence of mitral valve stenosis. Tricuspid Valve The tricuspid valve is normal in structure. Mild to moderate tricuspid regurgitation. PAP is estimated at 34 mmHg. [facility] [address] [place] [address] 2 D/M-MODE ECHOCARDIOGRAM Name: NEPTALI EASTMAN ANISH Room #: REG [facility]#: [id number] Admission: 01/17/18 Attend Phys: Jacques Forbes MD Discharge: Date of : [birth year] Date of Service: 01/17/18 1019 Report #: [id number] Pulmonic Valve Pulmonic valve is not well visualized due to low parasternal window. Great Vessels The aortic root is normal in size. IVC is normal in size and collapses >50% with inspiration. Pericardium There is no pericardial effusion. <Conclusion> The left ventricle is normal size. There is normal left ventricular wall thickness. Left ventricular systolic function is borderline. LVEF is 50%. Mild diastolic dysfunction is present (impaired relaxation pattern). Right ventricle is mildly dilated. Left atrium is dilated. Right atrium is dilated. Mild aortic regurgitation. Mild to moderate mitral regurgitation. Mild to moderate tricuspid regurgitation. PAP is estimated at 34 mmHg. <ELECTRONICALLY SIGNED> By: Jacques Forbes MD 01/17/18 1019 1019 1019 Jacques Forbes MD /INF
== END ==
LOC: CV 08:38
DX: I08.3 Combined rheumatic disorders of mitral, aortic and tricuspid valves (principal); I25.10 Atherosclerotic heart disease of native coronary artery without angina pectoris; I10 Essential (primary) hypertension

== ENCOUNTER 2018-04-07 03:15 | Inpatient (IN) | payer OTHER ==
[2018-04-07] VITALS (7 sets, daily range): BP systolic 133–159; BP diastolic 53–76
[~2018-04-07] VITALS: Ht 154.9 cm; Wt 43.2 kg
--- NOTE | ~2018-04-07 | HC ---
[facility] [place] [address] CONSULTATION Name: NEPTALI EASTMAN Room #: 208-P ADM IN M.R.#: [id number] Admission: 04/07/18 Attend Phys: Jaquan Mckeon MD Discharge: Date of : [birth year] Report #: [id number] THIS REPORT FOR: //name// CC: Jaquan Jenkins REASON FOR CONSULTATION: Unstable angina. HISTORY OF PRESENT ILLNESS: The patient is an 87-year-old female with a history of coronary artery disease who follows with Dr. Forbes. Last night, she woke up and had a few palpitations that lasted about a minute and this resolved, but then she started noticing chest heaviness that radiated to her left arm. It lasted approximately 30 minutes. She called an ambulance who came and gave her some nitroglycerin and this resulted in alleviation of her pain. She is still having some mild chest discomfort off and on since she has been here, but nothing that lasted more than a minute or so. She denies any shortness of breath. She denies fevers or chills. She denies PND, orthopnea, presyncope or syncope. PAST MEDICAL HISTORY: 1. Coronary artery disease, status post coronary artery bypass graft and prior stents. 2. Atrial fibrillation. 3. Hypertension. 4. Hyperlipidemia. 5. Echocardiogram back in 12/2017 showing EF of 50%. SOCIAL HISTORY: Does not smoke anymore. FAMILY HISTORY: Significant for coronary artery disease. ALLERGIES: INCLUDE PENICILLIN AND MORPHINE. MEDICATIONS: Have been reviewed, include beta ventura and Imdur. REVIEW OF SYSTEMS: Twelve-point review of systems was performed and was negative other than what I mentioned above. PHYSICAL EXAMINATION: VITAL SIGNS: Temperature is 36.7, pulse 63, respiration 17, blood pressure 133/63, sats 100%. GENERAL: She is in no acute distress. HEENT: Oropharynx is clear. NECK: Supple, with no thyromegaly. HEART: Regular rate and rhythm with occasional ectopic beats, but no murmurs. LUNGS: Clear to auscultation bilaterally. ABDOMEN: Soft, nontender, nondistended with no hepatosplenomegaly. [facility] [address] [place] [address] CONSULTATION Name: NEPTALI EASTMAN Room #: 208-P [facility] IN ..#: [id number] Admission: 04/07/18 Attend Phys: Jaquan Mckeon MD Discharge: Date of : [birth year] Report #: [id number] EXTREMITIES: No clubbing, cyanosis, or edema. NEUROLOGIC: Cranial nerves 2 through 12 are intact. LABORATORY DATA: Include white count 6.3, hemoglobin 11, platelets 209. Chemistry: Sodium 139, potassium 3.8, BUN 16, creatinine 1.0. Troponins are negative. Her EKG shows normal sinus rhythm with some ectopy, but no ischemic changes. Chest x-ray shows no acute process. IMPRESSION: 1. Possible unstable angina. 2. Coronary artery disease. 3. Prior coronary artery bypass graft. 4. Hypertension. 5. Hyperlipidemia. 6. Palpitations. 7. Possible atrial fibrillation versus VT. In summary, the patient is an 87-year-old with known coronary artery disease, presenting with worsening chest discomfort. Thus far, there is no evidence of ischemia on EKG, her troponins are negative. I have recommended that she undergo a nuclear stress test tomorrow. We will follow up with these results. By: 0951 [id number] Evan Albright MD /nt
--- NOTE | ~2018-04-07 | EKG ---
[address] [place] [address] ELECTROCARDIOGRAM REPORT Name: NEPTALI EASTMAN Room #: 208-P [facility] IN ..#: [id number] Admission: 04/07/18 Attend Phys: Jaquan Mckeon MD Discharge: Date of : [birth year] Report #: [id number] THIS REPORT FOR: //name// [facility] ED Test Date: 2018-04-07 Test Time: 03:23:12 Pat Name: NEPTALI EASTMAN Department: Room: Gender: F Recruitment Specialist: DIXIE : 1930 Requested By: Cara Pratt Order Number: [id number] MD: Evan Albright Measurements Intervals [place] Rate: 69 P: 37 [place]: 192 QRS: -38 QRSD: 109 T: 83 QT: 420 QTc: 450 Interpretive Statements Sinus rhythm Multiform ventricular premature complexes Left axis deviation Nonspecific T abnrm, anterolateral leads Compared to ECG 09/29/2017 12:30:04 Ventricular premature complex(es) now present Electronically Signed On 04-07-2018 13:13:39 CDT by Evan Albright [email or web address] <ELECTRONICALLY SIGNED> By: Evan Albright MD 04/07/18 1313 0323 0323 Evan Albright MD /EPI
[~2018-04-07 03:15] MED LIST changes: -ATIVAN0.5 MG PO
[2018-04-07 03:30] LABS: ABSOLUTE NEUTROPHILS 3.5 thou/uL (1.4-8.2); BASOPHILS 1.1 % (0.0-2.0); EOSINOPHILS 1.5 % (0.0-3.0); HEMATOCRIT 32.5 % (37.0-47.0); HEMOGLOBIN 11.3 gm/dL (12.0-15.0); MCH 35.8 pg (26.0-34.0); MCHC 34.6 g/dL (28.0-37.0); MCV 103.4 fL (80.0-100.0); MONOCYTES 9.8 % (1.0-8.0); PLATELET COUNT 209 thou/uL (150-400); POLYS 54.6 % (36.0-66.0); RBC 3.14 mil/uL (4.20-5.00); RDW 14.3 % (10.5-14.5); WBC 6.3 thou/uL (4.0-11.0)
[2018-04-07 03:33] LABS: ANION GAP 4 mmol/L (7-16); BUN 16 mg/dL (7-18); CALCIUM 9.5 mg/dL (8.5-10.1); CHLORIDE 105 mmol/L (98-107); CO2 30 mmol/L (21-32); GLUCOSE 112 mg/dL (74-106); POTASSIUM 3.8 mmol/L (3.5-5.1); SODIUM 139 mmol/L (136-145)
[2018-04-07 03:41] LABS: TROPONIN-I < 0.04 ng/mL (<0.06)
[2018-04-07 07:30] LABS: CHOLESTEROL 128 mg/dL (<200); HDL CHOLESTEROL 44 mg/dL (>40); LDL CHOLESTEROL 60 mg/dL (<100); TC:HDL 2.9 Ratio (Not establshd); TRIGLYCERIDE 122 mg/dL (<150); VLDL 24 mg/dL (<40)
[2018-04-07] MEDS ORDERED: ATIVAN0.5 MG PO (08:50)
[2018-04-08 00:31] VITALS: BP 109/52
[2018-04-08 04:12] VITALS: BP 122/62
[2018-04-08 08:00] VITALS: BP 165/72
[2018-04-08 15:25] VITALS: BP 127/59
[2018-04-08 17:42] VITALS: BP 127/59
[2018-04-08 18:05] VITALS: BP 127/59
== END 2018-04-08 18:43 | disposition home or self-care (01) | DRG 313 ==
LOC: ER 03:15 → EROBS 04:31 → 2N 04:31 → ENTRNSPT 04-08 18:38 → 2N 04-08 18:43
PROVIDERS: Emergency Medicine; Nurse Practitioner Acute Care
DX: R07.89 Other chest pain (principal); E46 Unspecified protein-calorie malnutrition; Z68.1 Body mass index [BMI] 19.9 or less, adult; I10 Essential (primary) hypertension; I48.91 Unspecified atrial fibrillation; E78.5 Hyperlipidemia, unspecified; I25.10 Atherosclerotic heart disease of native coronary artery without angina pectoris; K21.9 Gastro-esophageal reflux disease without esophagitis; Z79.1 Long term (current) use of non-steroidal anti-inflammatories (NSAID); Z79.899 Other long term (current) drug therapy; Z88.0 Allergy status to penicillin; Z83.3 Family history of diabetes mellitus; Z88.1 Allergy status to other antibiotic agents; Z87.891 Personal history of nicotine dependence; Z90.49 Acquired absence of other specified parts of digestive tract; Z82.49 Family history of ischemic heart disease and other diseases of the circulatory system; Z95.1 Presence of aortocoronary bypass graft; Z95.5 Presence of coronary angioplasty implant and graft; Z90.710 Acquired absence of both cervix and uterus; Z87.442 Personal history of urinary calculi; I25.2 Old myocardial infarction
CPT/HCPCS: 10081

== ENCOUNTER 2018-05-05 03:29 | Emergency (ER) | payer OTHER ==
[~2018-05-05] VITALS: Ht 154.9 cm; Wt 43.5 kg
--- NOTE | ~2018-05-05 | EKG ---
[place] [address] [facility] [place] [address] ELECTROCARDIOGRAM REPORT Name: NEPTALI EASTMAN [id number] Admission: 05/05/18 Attend Phys: Discharge: 05/05/18 Date of : [birth year] Report #: [id number] THIS REPORT FOR: //name// [facility] ED Test Date: 2018-05-05 Test Time: 03:24:57 Pat Name: NEPTALI EASTMAN Department: Room: Gender: F Hop Weigher: Sushila FREEMAN : 1930 Requested By: Nani Pantoja Order Number: [id number] MD: Mayank Lewis Measurements Intervals [place] Rate: 69 P: 77 MD: 159 QRS: -38 QRSD: 108 T: 85 QT: 454 QTc: 487 Interpretive Statements Sinus rhythm Incomplete RBBB and LAFB Nonspecific ST segment abnormality Borderline prolonged QT interval Compared to ECG 04/07/2018 03:23:12 premature ventricular complexes are no longer present Electronically Signed On 05-06-2018 7:54:00 CDT by Mayank Lewis [email or web address] <ELECTRONICALLY SIGNED> By: Mayank Lewis MD, [facility] 05/06/18 0754 0324 0324 Mayank Lewis MD, [facility] /EPI
[~2018-05-05 03:29] MED LIST changes: +ATIVAN0.5 MG PO
[2018-05-05 04:07] LABS: ABSOLUTE NEUTROPHILS 3.5 thou/uL (1.4-8.2); BASOPHILS 0.6 % (0.0-2.0); EOSINOPHILS 1.4 % (0.0-3.0); HEMOGLOBIN 13.3 gm/dL (12.0-15.0); LYMPHOCYTES 39.6 % (24.0-44.0); MCHC 34.2 g/dL (28.0-37.0); MONOCYTES 10.7 % (1.0-8.0); PLATELET COUNT 238 thou/uL (150-400); POLYS 47.7 % (36.0-66.0); RBC 3.71 mil/uL (4.20-5.00); RDW 15.2 % (10.5-14.5); WBC 7.4 thou/uL (4.0-11.0)
[2018-05-05 04:15] LABS: ANION GAP 5 mmol/L (7-16); BUN 22 mg/dL (7-18); CALCIUM 9.8 mg/dL (8.5-10.1); CHLORIDE 103 mmol/L (98-107); CO2 30 mmol/L (21-32); GLUCOSE 109 mg/dL (74-106); POTASSIUM 4.2 mmol/L (3.5-5.1); SODIUM 138 mmol/L (136-145)
[2018-05-05 04:23] LABS: MAGNESIUM 2.3 mg/dL (1.8-2.4); TROPONIN-I <0.06 ng/mL (<0.06)
[2018-05-05 06:24] VITALS: BP 141/64
== END 2018-05-05 06:37 | disposition home or self-care (01) ==
LOC: ER 03:29
PROVIDERS: Emergency Medicine
DX: R07.89 Other chest pain (principal); I25.2 Old myocardial infarction; I25.10 Atherosclerotic heart disease of native coronary artery without angina pectoris; I48.91 Unspecified atrial fibrillation; I10 Essential (primary) hypertension; E78.5 Hyperlipidemia, unspecified; Z90.710 Acquired absence of both cervix and uterus; Z90.49 Acquired absence of other specified parts of digestive tract; Z95.5 Presence of coronary angioplasty implant and graft; Z88.5 Allergy status to narcotic agent; Z88.0 Allergy status to penicillin